=== PATIENT | female | born 1980 | race Caucasian/White ===

== ENCOUNTER 2016-09-06 22:08 | Observation (INO) | payer MEDICAID, OTHER ==
[~2016-09-06] VITALS: Ht 162.6 cm; Wt 61.0 kg
[~2016-09-06 22:08] MED LIST: PRED20 PO; VENTAER INH
[2016-09-06 22:15] VITALS: BP 135/90; PULSE 104; RESP 18; TEMP 98.6; O2SAT 98
[2016-09-07] VITALS (10 sets, daily range): BP systolic 100–136; BP diastolic 49–99; PULSE 53–94; RESP 16–20; TEMP 97.2–98.3; O2SAT 96–100
[2016-09-07] MEDS ORDERED: SODIUM CHLOR 0.9% 1000 ML INJ 1,000 ML IV SCH ×3 (02:01→03:45)
--- NOTE | 2016-09-07 02:07 | PD ---
HPI Chief Complaint: GI Complaint Time Seen by Provider: 01:49 Travel History International Travel<30 days: No Contact w/Intl Traveler<30days: No Traveled to known affect area: No History of Present Illness HPI The patient is a 36-year-old female that about 20 hours ago began vomiting small amounts of bright red blood and noted bright red blood in her stool. Her stool is liquid. She denies any fever. She has a burning pain in her epigastrium and this is an 8/10. She states she had a normal menstrual period 2 weeks ago and cannot be . 2 days ago she drank some alcohol but none since. She had several aspirin and several ibuprofen yesterday. She thinks the ibuprofen may have irritated her stomach. She has never had this problem before. [facility] Past Medical History Medical History: Denies Significant Hx Diminished Hearing: No Tetanus Vaccination: > 5 Years Influenza Vaccination: No ?: Not LMP: 2 WKS AGO : 3 Para: 1 Miscarriage: 1 : 1 Past Surgical History Surgical History: No Previous Surgery Social History Alcohol Use: Yes (DAILY) Tobacco Use: Yes Substance Use: No Allergies-Medications (Allergen,Severity, Reaction): Coded Allergies: No Known Allergies (Verified , 09/07/16) Reported Meds & Prescriptions Reported Meds & Active Scripts Active No Active Prescriptions or Reported Medications Review of Systems Except as stated in HPI: all other systems reviewed are Neg Physical Exam Narrative GENERAL: The patient is alert, oriented 3 in moderate distress with her midline epigastric pain. Her vital signs are normal on repeat. She does not appear anemic. She does appear moderately dehydrated. SKIN: Focused skin assessment warm/dry. HEAD: Atraumatic. Normocephalic. EYES: Pupils equal and round. No scleral icterus. No injection or drainage. ENT: No nasal bleeding or discharge. Mucous membranes pink but dry. NECK: Trachea midline. No JVD. CARDIOVASCULAR: Regular rate and rhythm. No murmur appreciated. RESPIRATORY: No accessory muscle use. Clear to auscultation. Breath sounds equal bilaterally. GASTROINTESTINAL: Abdomen soft, with tenderness to direct palpation in the midline epigastrium, nondistended. Hepatic and splenic margins not palpable. No guarding or rebound is present. MUSCULOSKELETAL: No obvious deformities. No clubbing. No cyanosis. No edema. NEUROLOGICAL: Awake and alert. No obvious cranial nerve deficits. Motor grossly within normal limits. Normal speech. PSYCHIATRIC: The patient is anxious; insight and judgment normal. RECTAL EXAM: No masses or tenderness, stool is light red, watery and strongly guaiac positive. Data Data Last Documented VS Vital Signs Date Time Temp Pulse Resp B/P Pulse Ox O2 Delivery O2 Flow Rate FiO2 09/07/16 02:47 53 128/81 99 Room Air 09/07/16 01:37 18 09/06/16 22:15 98.6 Orders Beta Hcg (Quant/Titer) (09/07/16 02:01) Complete Blood Count With Diff (09/07/16 02:01) Comprehensive Metabolic Panel (09/07/16 02:01) Lipase (09/07/16 02:01) Urinalysis - C+S If Indicated (09/07/16 02:01) Iv Access Insert/Monitor (09/07/16 02:01) Ecg Monitoring (09/07/16 02:01) Oximetry (09/07/16 02:01) Morphine Inj (Morphine Inj) (09/07/16 02:15) Ondansetron Inj (Zofran Inj) (09/07/16 02:15) Pantoprazole Inj (Protonix Inj) (09/07/16 02:15) Sodium Chlor 0.9% 1000 Ml Inj (Ns 1000 M (09/07/16 02:01) Sodium Chloride 0.9% Flush (Ns Flush) (09/07/16 02:15) Famotidine Inj (Pepcid Inj) (09/07/16 02:15) Al-Mag Hy-Si 40-40-4 Mg/Ml Liq (Mag-Al P (09/07/16 02:15) Lidocaine 2% Viscous (Xylocaine 2% Visco (09/07/16 02:15) Drug Screen, Random Urine (09/07/16 02:01) Prothrombin Time / Inr (Pt) (09/07/16 02:08) Act Partial Throm Time (Ptt) (09/07/16 02:08) Ondansetron Inj (Zofran Inj) (09/07/16 02:45) Metoclopramide Inj (Reglan Inj) (09/07/16 03:45) Sodium Chlor 0.9% 1000 Ml Inj (Ns 1000 M (09/07/16 03:45) Labs Laboratory Tests Test 09/07/16 09/07/16 02:00 02:40 White Blood Count 20.9 TH/MM3 Red Blood Count 4.94 MIL/MM3 Hemoglobin 15.7 GM/DL Hematocrit 46.7 % Mean Corpuscular Volume 94.4 FL Mean Corpuscular Hemoglobin 31.7 PG Mean Corpuscular Hemoglobin 33.6 % Concent Red Cell Distribution Width 11.4 % Platelet Count 404 TH/MM3 Mean Platelet Volume 8.4 FL Neutrophils (%) (Auto) 90.5 % Lymphocytes (%) (Auto) 6.9 % Monocytes (%) (Auto) 2.4 % Eosinophils (%) (Auto) 0.1 % Basophils (%) (Auto) 0.1 % Neutrophils # (Auto) 19.0 TH/MM3 Lymphocytes # (Auto) 1.4 TH/MM3 Monocytes # (Auto) 0.5 TH/MM3 Eosinophils # (Auto) 0.0 TH/MM3 Basophils # (Auto) 0.0 TH/MM3 CBC Comment DIFF FINAL Differential Comment Sodium Level 141 MEQ/L Potassium Level 3.5 MEQ/L Chloride Level 102 MEQ/L Carbon Dioxide Level 26.4 MEQ/L Anion Gap 13 MEQ/L Blood Urea Nitrogen 13 MG/DL Creatinine 0.84 MG/DL Estimat Glomerular Filtration 78 ML/MIN Rate Random Glucose 122 MG/DL Calcium Level 9.0 MG/DL Total Bilirubin 0.7 MG/DL Aspartate Amino Transf 13 U/L (AST/SGOT) Alanine Aminotransferase 29 U/L (ALT/SGPT) Alkaline Phosphatase 93 U/L Total Protein 8.4 GM/DL Albumin 4.2 GM/DL Lipase 79 U/L Human Chorionic Gonadotropin, LESS THAN 1 Quant MIU/ML Prothrombin Time 10.4 SEC Prothromb Time International 0.9 RATIO Ratio Activated Partial 23.8 SEC Thromboplast Time MDM Medical Decision Making Medical Screen Exam Complete: Yes Emergency Medical Condition: Yes Medical Record Reviewed: Yes Interpretation(s) The CBC shows a white count of 20,900 with 91% neutrophils. There is apparent hemoconcentration with a hemoglobin at 15.7 and hematocrit of 46.7. The coagulation profile shows an APTT of 23.8 but is otherwise unremarkable. The complete metabolic profile shows a glucose of 122 and total protein 8.4 but is otherwise normal. The lipase is normal. The beta-hCG is less than 1. Differential Diagnosis Ulcer pain, gastritis, gastroenteritis, anemia, electrolyte disorder, dehydration, renal insufficiency, coagulopathyunlikely Narrative Course It is now 0333 and the patient still has abdominal pain and nausea. She has not vomited again. The patient does have what appears to be a gastritis with evidence of dehydration. The dehydration is suggested by the apparent hemoconcentration on the CBC and from the fact that she still cannot make us a urinelikely because she is so dehydrated. The patient will be admitted to the [facility] service, Dr. Garcia. The apparent blood loss is minimal. Diagnosis Primary Impression: Acute hemorrhagic gastritis Additional Impressions: Intractable nausea and vomiting Intractable abdominal pain Moderate dehydration Admitting Information Admitting Physician Requests: Admit Scripts No Active Prescriptions or Reported Meds Koffi Junior MD Sep 07, 2016 02:07
[2016-09-07] MEDS ORDERED: ONDANSETRON HCL 4 MG/2 ML VIAL IVP ONE (02:15)
[2016-09-07] MEDS ORDERED: LIDOCAINE VISCOUS 2% SOLN 15 ML UDC PO ONE (02:15)
[2016-09-07] MEDS ORDERED: FAMOTIDINE 20 MG/2 ML VIAL IV PUSH ONE (02:15)
[2016-09-07] MEDS ORDERED: ALUMINUM/MAGNESIUM/SIMETH 30 ML CUP PO ONE (02:15)
[2016-09-07] MEDS ORDERED: MORPHINE SULFATE 4 MG/ML INJ IV PUSH ONE (02:15)
[2016-09-07] MEDS ORDERED: SODIUM CHLORIDE 0.9% FLUSH 10 ML FLUSH IV FLUSH PRN ×2 (02:15→03:45)
[2016-09-07] MEDS ORDERED: PANTOPRAZOLE SODIUM 40 MG VIAL IVP ONE (02:15)
[2016-09-07] MEDS ORDERED: ONDANSETRON HCL 4 MG/2 ML VIAL IV ONE (02:45)
[2016-09-07 02:49] LABS: BASOPHIL % 0.1 % (0.0-2.0); EOSINOPHIL % 0.1 % (0.0-4.0); HEMATOCRIT 46.7 % (35.0-46.0); LYMPH % 6.9 % (9.0-44.0); LYMPHOCYTE # 1.4 TH/MM3 (1.0-4.8); MEAN CELL VOLUME 94.4 FL (80.0-100.0); MEAN CORPUSCULAR HEMOGLOBIN 31.7 PG (27.0-34.0); MEAN CORPUSCULAR HGB CONC 33.6 % (32.0-36.0); MONO % 2.4 % (0.0-8.0); NEUT % 90.5 % (16.0-70.0); PLATELET COUNT 404 TH/MM3 (150-450); RED BLOOD COUNT 4.94 MIL/MM3 (4.00-5.30); RED CELL DISTRIBUTION WIDTH 11.4 % (11.6-17.2); WHITE BLOOD COUNT 20.9 TH/MM3 (4.0-11.0)
[2016-09-07 02:50] LABS: CHLORIDE 102 MEQ/L (98-107); POTASSIUM 3.5 MEQ/L (3.5-5.1); SODIUM (NA) 141 MEQ/L (136-145)
[2016-09-07 02:54] LABS: ANION GAP 13 MEQ/L (5-15); BICARBONATE 26.4 MEQ/L (21.0-32.0); BLOOD UREA NITROGEN 13 MG/DL (7-18)
[2016-09-07 02:56] LABS: ALT (GPT) 29 U/L (10-53)
[2016-09-07 02:57] LABS: AST (GOT) 13 U/L (15-37); GLOMERULAR FILTRATION RATE 78 ML/MIN (>89)
[2016-09-07 02:58] LABS: HEMO FLAGS DIFF FINAL; TOTAL BILIRUBIN ADULT 0.7 MG/DL (0.2-1.0)
[2016-09-07 02:59] LABS: ALKALINE PHOSPHATASE 93 U/L (45-117)
[2016-09-07 03:02] LABS: BETA HCG QUANT LESS THAN 1 MIU/ML (0-5)
[2016-09-07 03:06] LABS: APTT (PATIENT) 23.8 SEC (24.3-30.1); INTERNATIONAL NORMALIZED RATIO 0.9 RATIO; PROTHROMBIN TIME - PATIENT 10.4 SEC (9.8-11.6)
[2016-09-07] MEDS ORDERED: NALOXONE HCL 0.4 MG/ML AMP IV PRN (03:45)
[2016-09-07] MEDS ORDERED: METOCLOPRAMIDE HCL 10 MG/2 ML VIAL IVS ONE (03:45)
[2016-09-07] MEDS: PANTOPRAZOLE INJ 80 MG in SODIUM CHLORIDE 0.9% INJ 100 ML IV SCH ×2 (04:14→16:03)
[2016-09-07] MEDS ORDERED: HALOPERIDOL LACTATE 5 MG/ML AMP IM PRN (05:00)
[2016-09-07] MEDS ORDERED: DOCUSATE SODIUM 100 MG CAP PO PRN (05:00)
[2016-09-07] MEDS ORDERED: PANTOPRAZOLE INJ 80 MG in SODIUM CHLORIDE 0.9% INJ 35 ML IV ONE (05:00)
[2016-09-07] MEDS ORDERED: LORazepam 1 MG TAB PO PRN (05:00)
[2016-09-07] MEDS ORDERED: LORazepam 2 MG/ML VIAL IV PUSH PRN ×4 (05:00)
[2016-09-07] MEDS ORDERED: FLUMAZENIL 0.5 MG/5 ML VIAL IV PUSH PRN (05:00)
[2016-09-07] MEDS ORDERED: MAGNESIUM HYDROXIDE SUSP 30 ML CUP PO PRN (05:00)
[2016-09-07] MEDS ORDERED: ALUMINUM/MAGNESIUM/SIMETH 30 ML CUP PO PRN (05:00)
[2016-09-07] MEDS ORDERED: CALCIUM CARBONATE 500 MG CHEWABLE TAB CHEW PRN (05:00)
[2016-09-07] MEDS ORDERED: ACETAMINOPHEN 325 MG TAB PO PRN (05:00)
[2016-09-07] MEDS ORDERED: LORazepam 2 MG TAB PO PRN (05:00)
[2016-09-07] MEDS ORDERED: POTASSIUM CHLORIDE 20 MEQ CONTROLLED RELEASE TAB PO ONE (05:00)
[2016-09-07] MEDS: NS + KCL 20 MEQ INJ 1,000 ML IV SCH ×2 (05:54→16:03)
[2016-09-07 06:26] LABS: REVIEW FLAG FINAL
[2016-09-07] MEDS: FOLIC ACID 1 MG TAB PO SCH (09:00)
[2016-09-07] MEDS: SODIUM CHLORIDE 0.9% FLUSH 10 ML FLUSH IV FLUSH SCH ×2 (09:00→20:00)
[2016-09-07] MEDS: THIAMINE HCL 100 MG TAB PO SCH (09:00)
[2016-09-07] MEDS: MULTIVITAMINS/MINERALS THERAPEUTIC TAB PO SCH (09:00)
--- NOTE | 2016-09-07 10:11 | HHI.HP ---
[facility] Service [place] Primary Care Physician No Primary Care Physician Admission Diagnosis hemorrhagic gastritis, intractable vomiting Diagnoses: (1) Abdominal pain (2) Bright red blood per rectum (3) Moderate dehydration Chief Complaint: Blood in stool; nausea/vomiting Travel History International Travel<30 Days: No Contact w/Intl Traveler <30 Da: No Traveled to Known Affected Are: No History of Present Illness The patient is a 36-year-old female who presented to the emergency department with complaint of vomiting that started yesterday. She reports having bright red blood per rectum. Denies bowel movements, but states that it is "all blood" . She reports epigastric pain, 8/10. She states that it feels like "peptic ulcer disease". She has not had prior endoscopy and has never seen a overhead door technician. She has had worsening headaches over the past 3 weeks and has been taking a large amount of ibuprofen over that time. She denies significant alcohol use. She is not sure if there is blood in her emesis, but states that it is dark. She denies vaginal bleeding. States that her last menstrual period was 2 weeks ago. Review of Systems Constitutional: DENIES: Fever, Chills, Night Sweats Eyes: DENIES: Blurred vision, Vision loss Ears, nose, mouth, throat: DENIES: Hearing loss Respiratory: DENIES: Cough, Wheezing, Sputum production, Shortness of breath Cardiovascular: DENIES: Chest pain, Palpitations, Dyspnea on Exertion, Lower Extremity Edema Gastrointestinal: COMPLAINS OF: Abdominal pain, Bloody stools, Nausea, Vomiting , DENIES: Constipation, Diarrhea Genitourinary: DENIES: Urinary frequency, Urinary incontinence, Urgency, Hematuria, Dysuria, Nocturia Musculoskeletal: DENIES: Joint pain, Muscle aches Integumentary: DENIES: Pruritus, Rash Hematologic/lymphatic: DENIES: Bruising Neurologic: COMPLAINS OF: Headache Past Family Social History Past Medical History Denies Past Surgical History None Reported Medications None Allergies: Coded Allergies: No Known Allergies (Verified , 09/07/16) Family History Diabetes Social History Smokes one half pack per day. Reports occasional alcohol use. Admits to smoking marijuana occasionally. Denies IV drug use. Physical Exam Vital Signs Vital Signs Date Time Temp Pulse Resp B/P Pulse Ox O2 Delivery O2 Flow Rate FiO2 09/07/16 09:21 72 16 107/68 98 Room Air 09/07/16 07:03 98.3 87 16 105/49 100 Room Air 09/07/16 03:48 70 100/53 96 Room Air 09/07/16 02:47 53 128/81 99 Room Air 09/07/16 02:20 99 Room Air 09/07/16 01:41 94 109/82 98 Room Air 09/07/16 01:37 18 09/06/16 22:15 98.6 104 18 135/90 98 Physical Exam GENERAL: Well-nourished, well-developed female in no acute distress. HEENT: Normocephalic, atraumatic. Pupils equal, round and reactive. Extraocular movements intact. No scleral icterus. No injection or drainage. Oropharynx is clear. Mucous membranes are moist. CARDIOVASCULAR: Regular rate and rhythm without murmurs, gallops, or rubs. RESPIRATORY: Clear to auscultation. No wheezes, rales, or rhonchi. Breathing is non-labored. GASTROINTESTINAL: Abdomen soft, tender to palpation in the midepigastric region without rebound or guarding, nondistended. Positive bowel sounds. EXTREMITIES: No lower extremity edema. No calf tenderness. PSYCH: Alert and oriented x 3. Laboratory Laboratory Tests Test 09/07/16 09/07/16 09/07/16 09/07/16 02:00 02:40 04:23 06:17 White Blood Count 20.9 Red Blood Count 4.94 Hemoglobin 15.7 12.1 Hematocrit 46.7 37.0 Mean Corpuscular Volume 94.4 Mean Corpuscular Hemoglobin 31.7 Mean Corpuscular Hemoglobin 33.6 Concent Red Cell Distribution Width 11.4 Platelet Count 404 Mean Platelet Volume 8.4 Neutrophils (%) (Auto) 90.5 Lymphocytes (%) (Auto) 6.9 Monocytes (%) (Auto) 2.4 Eosinophils (%) (Auto) 0.1 Basophils (%) (Auto) 0.1 Neutrophils # (Auto) 19.0 Lymphocytes # (Auto) 1.4 Monocytes # (Auto) 0.5 Eosinophils # (Auto) 0.0 Basophils # (Auto) 0.0 CBC Comment DIFF FINAL Differential Comment Sodium Level 141 Potassium Level 3.5 Chloride Level 102 Carbon Dioxide Level 26.4 Anion Gap 13 Blood Urea Nitrogen 13 Creatinine 0.84 Estimat Glomerular Filtration 78 Rate Random Glucose 122 Calcium Level 9.0 Total Bilirubin 0.7 Aspartate Amino Transf 13 (AST/SGOT) Alanine Aminotransferase 29 (ALT/SGPT) Alkaline Phosphatase 93 Total Protein 8.4 Albumin 4.2 Lipase 79 Human Chorionic Gonadotropin, LESS THAN 1 Quant Prothrombin Time 10.4 Prothromb Time International 0.9 Ratio Activated Partial 23.8 Thromboplast Time Blood Type O POSITIVE Antibody Screen NEGATIVE Blood Bank Comment Result Diagram: 09/07/16 0617 09/07/16 0200 Assessment and Plan Assessment and Plan 1. GI bleed: Patient is having bright red blood per rectum, and possibly hematemesis. Hemoglobin has dropped 3 points overnight, but much of this is likely dilutional effect as patient was dehydrated upon presentation. Monitor H& H. Consult GI. Nothing by mouth. 2. Nausea/vomiting: Improving. Patient denies sick contacts. States that she has not eaten anything out of the ordinary recently and no one else who ate the same meal she did has had symptoms. 3. Tobacco abuse: Counseled to quit smoking. Rhys Galvez MD Sep 07, 2016 10:11
[2016-09-07 10:14] LABS: BLOOD, URINE NEG (NEG); GLUCOSE,URINE NEG (NEG); KETONE, URINE 40 mg/dL (NEG); NITRITE,URINE NEG (NEG)
[2016-09-07 10:23] LABS: HEMATOCRIT 38.3 % (35.0-46.0); REVIEW FLAG FINAL
[2016-09-07 10:24] LABS: METHOD OF COLLECTION CLEAN CATCH; URINE COLOR YELLOW (YELLW/STRAW)
[2016-09-07 10:25] LABS: BACTERIA, URINE FEW /hpf; MUCUS URINE FEW /lpf (OCC); RBC, URINE 0-3 /hpf (0-3); WBC, URINE 0-2 /hpf (0-5)
[2016-09-07 10:26] LABS: COMMENT (UR) CULT NOT INDICATED; CULTURE IF INDICATED CULT NOT INDICATED
[2016-09-07 10:40] LABS: BARBITURATES, URINE NEG (NEG); COCAINE, URINE NEG (NEG)
[2016-09-07 10:41] LABS: AMPHETAMINE, URINE NEG (NEG)
[2016-09-07 14:13] LABS: HEMATOCRIT 37.8 % (35.0-46.0); REVIEW FLAG FINAL
--- NOTE | 2016-09-07 16:37 | PD.CONS ---
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 Her emesis varied from clear to bilious with some coffee ground appearance and dark brown color at times. She repeatedly had sensation to defecate but only bright red blood would come out. SHe also has BRBPR when trying to urinate. She has not passed stool in 2-3 days, only blood. She vomited once today and it was clear, no blood. SHe had 1 episode today of blood from rectum and said it was a clot. She admits to recent frequent NSAID use for headaches and taking ibuprofen on empty stomach. She has lost 10 lbs in the last month but she attributes to grief from recent of mother. Never had colonoscopy or endoscopy. Denies heavy alcohol use. Regarding pos result for urine opiate she says she took a pill a friend gave her thinking it was ibuprofen and it must not have been. ( Spring Scott) PFSH Past Medical History Denies Past Surgical History None (Spring Scott) Coded Allergies: No Known Allergies (Verified , 09/07/16) Family History Diabetes mother had throat mass Social History Smokes one half pack per day. Reports occasional alcohol use. Admits to smoking marijuana occasionally. Denies IV drug use. (Spring Scott) Review of Systems Constitutional: DENIES: Fever Eyes: DENIES: Blurred vision Ears, nose, mouth, throat: DENIES: Hearing loss Respiratory: DENIES: Cough Cardiovascular: DENIES: Palpitations Gastrointestinal: COMPLAINS OF: Abdominal pain, Bloody stools, Nausea, Vomiting , DENIES: Black stools, Heartburn Genitourinary: DENIES: Urinary incontinence Musculoskeletal: DENIES: Joint pain Integumentary: DENIES: Abnormal pigmentation Hematologic/lymphatic: DENIES: Bruising Neurologic: DENIES: Abnormal gait (Spring Scott) GI Exam Vitals I&O Vital Signs Date Time Temp Pulse Resp B/P Pulse Ox O2 Delivery O2 Flow Rate FiO2 09/07/16 13:00 97.5 63 16 117/81 97 09/07/16 11:36 68 16 100/64 100 Room Air 09/07/16 09:21 72 16 107/68 98 Room Air 09/07/16 07:03 98.3 87 16 105/49 100 Room Air 09/07/16 03:48 70 100/53 96 Room Air 09/07/16 02:47 53 128/81 99 Room Air 09/07/16 02:20 99 Room Air 09/07/16 01:41 94 109/82 98 Room Air 09/07/16 01:37 18 09/06/16 22:15 98.6 104 18 135/90 98 I/O 09/06/16 09/06/16 09/06/16 09/07/16 09/07/16 09/07/16 06:59 14:59 22:59 06:59 14:59 22:59 Intake Total 2035 ml Balance 2035 ml Intake IV Total 2035 ml Laboratory Test 09/07/16 09/07/16 09/07/16 09/07/16 02:00 02:40 04:23 06:17 White Blood Count 20.9 TH/MM3 Red Blood Count 4.94 MIL/MM3 Hemoglobin 15.7 GM/DL 12.1 GM/DL Hematocrit 46.7 % 37.0 % Mean Corpuscular Volume 94.4 FL Mean Corpuscular Hemoglobin 31.7 PG Mean Corpuscular Hemoglobin 33.6 % Concent Red Cell Distribution Width 11.4 % Platelet Count 404 TH/MM3 Mean Platelet Volume 8.4 FL Neutrophils (%) (Auto) 90.5 % Lymphocytes (%) (Auto) 6.9 % Monocytes (%) (Auto) 2.4 % Eosinophils (%) (Auto) 0.1 % Basophils (%) (Auto) 0.1 % Neutrophils # (Auto) 19.0 TH/MM3 Lymphocytes # (Auto) 1.4 TH/MM3 Monocytes # (Auto) 0.5 TH/MM3 Eosinophils # (Auto) 0.0 TH/MM3 Basophils # (Auto) 0.0 TH/MM3 CBC Comment DIFF FINAL Differential Comment Sodium Level 141 MEQ/L Potassium Level 3.5 MEQ/L Chloride Level 102 MEQ/L Carbon Dioxide Level 26.4 MEQ/L Anion Gap 13 MEQ/L Blood Urea Nitrogen 13 MG/DL Creatinine 0.84 MG/DL Estimat Glomerular Filtration 78 ML/MIN Rate Random Glucose 122 MG/DL Calcium Level 9.0 MG/DL Total Bilirubin 0.7 MG/DL Aspartate Amino Transf 13 U/L (AST/SGOT) Alanine Aminotransferase 29 U/L (ALT/SGPT) Alkaline Phosphatase 93 U/L Total Protein 8.4 GM/DL Albumin 4.2 GM/DL Lipase 79 U/L Human Chorionic Gonadotropin, LESS THAN 1 Quant MIU/ML Prothrombin Time 10.4 SEC Prothromb Time International 0.9 RATIO Ratio Activated Partial 23.8 SEC Thromboplast Time Blood Type O POSITIVE Antibody Screen NEGATIVE Blood Bank Comment Test 09/07/16 09/07/16 09/07/16 10:00 10:14 14:03 Urine Collection Type CLEAN CATCH Urine Color YELLOW Urine Turbidity CLEAR Urine pH 6.0 Urine Specific Amorita 1.025 Urine Protein 30 mg/dL Urine Glucose (UA) NEG mg/dL Urine Ketones 40 mg/dL Urine Occult Blood NEG Urine Nitrite NEG Urine Bilirubin NEG Urine Leukocyte Esterase NEG Urine RBC 0-3 /hpf Urine WBC 0-2 /hpf Urine Squamous Epithelial 6-8 /hpf Cells Urine Bacteria FEW /hpf Urine Mucus FEW /lpf Microscopic Urinalysis Comment CULT NOT INDICATED Urine Collection Time 10:00 Urine Opiates Screen POS Urine Barbiturates Screen NEG Urine Amphetamines Screen NEG Urine Benzodiazepines Screen NEG Urine Cocaine Screen NEG Urine Cannabinoids Screen POS Hemoglobin 12.8 GM/DL 12.7 GM/DL Hematocrit 38.3 % 37.8 % Physical Examination HEENT: EOMI; normocephalic; atraumatic; no jaundice. NECK: Neck is supple CHEST: Chest is clear to auscultation and percussion. CARDIAC: Regular rate and rhythm with no murmur gallop or rubs. ABDOMEN: Soft, nondistended, nontender; no hepatosplenomegaly; bowel sounds are present in all four quadrants. EXTREMITIES: No clubbing, cyanosis, or edema. SKIN: Normal; no rash; no jaundice. PCI SECURITY CONSULTANT: No focal deficits; alert and oriented times three. (Spring Scott) Assessment and Plan Plan ASSESSMENT: - profuse rectal bleeding, coffee ground emesis. Denies heavy ETOH consumption. Frequent use NSAIDs. - epigastric pain, could be ulcer - anemia. Hgb 12.7 down from 15.7 09/07 but stable throughout the day today. 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 egd /colonoscopy planned for tomorrow. Dr. Foreman to follow. Thank you (Isaac Reno MD) Spring Scott Sep 07, 2016 16:37 Isaac Reno MD Sep 07, 2016 18:05
[2016-09-07] MEDS ORDERED: PEG (High)/E-LYTE SOLN 4000 ML BTL PO ONE (17:30)
[2016-09-07 18:20] LABS: HEMATOCRIT 36.5 % (35.0-46.0); REVIEW FLAG FINAL
[2016-09-07] MEDS: ONDANSETRON HCL 4 MG/2 ML VIAL IVP PRN (22:05)
[2016-09-07] MEDS ORDERED: MAGNESIUM CITRATE SOLN 300 ML BTL PO PRN (23:00)
[2016-09-08] VITALS: BP 105/75; PULSE 68; RESP 18; TEMP 98.3; O2SAT 97
[2016-09-08] MEDS: NS + KCL 20 MEQ INJ 1,000 ML IV SCH ×2 (01:06→10:33)
[2016-09-08] MEDS: PANTOPRAZOLE INJ 80 MG in SODIUM CHLORIDE 0.9% INJ 100 ML IV SCH ×2 (01:07→10:36)
[2016-09-08 05:41] LABS: AUTOMATED NEUTROPHIL # 7.2 TH/MM3 (1.8-7.7); BASOPHIL % 0.4 % (0.0-2.0); EOSINOPHIL # 0.1 TH/MM3 (0-0.4); EOSINOPHIL % 0.9 % (0.0-4.0); HEMATOCRIT 35.7 % (35.0-46.0); HEMO FLAGS DIFF FINAL; LYMPH % 30.4 % (9.0-44.0); LYMPHOCYTE # 3.5 TH/MM3 (1.0-4.8); MEAN CELL VOLUME 95.7 FL (80.0-100.0); MEAN CORPUSCULAR HGB CONC 33.4 % (32.0-36.0); MONO % 6.3 % (0.0-8.0); PLATELET COUNT 274 TH/MM3 (150-450); RED BLOOD COUNT 3.73 MIL/MM3 (4.00-5.30); RED CELL DISTRIBUTION WIDTH 11.5 % (11.6-17.2); WHITE BLOOD COUNT 11.5 TH/MM3 (4.0-11.0)
[2016-09-08 06:10] LABS: BICARBONATE 21.6 MEQ/L (21.0-32.0)
[2016-09-08 08:00] VITALS: BP 137/81; PULSE 64; RESP 20; TEMP 97.5; O2SAT 96
--- NOTE | 2016-09-08 08:28 | HHI.PR ---
Subjective Remarks Follow-up GI bleed. Patient states that she thinks the bleeding has stopped. She states that she feels a little better today. Scheduled for endoscopy today. Has had nausea and vomiting. Objective Vitals Vital Signs Date Time Temp Pulse Resp B/P Pulse Ox O2 Delivery O2 Flow Rate FiO2 09/08/16 00:00 98.3 68 18 105/75 97 09/07/16 20:00 55 09/07/16 20:00 97.7 56 20 136/99 100 09/07/16 16:00 97.2 68 17 109/65 98 09/07/16 13:00 97.5 63 16 117/81 97 09/07/16 11:36 68 16 100/64 100 Room Air 09/07/16 09:21 72 16 107/68 98 Room Air I/O 09/07/16 09/07/16 09/07/16 09/08/16 09/08/16 09/08/16 07:00 15:00 23:00 07:00 15:00 23:00 Intake Total 2035 ml 2341 ml 823 ml Balance 2035 ml 2341 ml 823 ml Intake Oral 480 ml 0 ml IV Total 2035 ml 1861 ml 823 ml # Voids 3 2 # Bowel Movements 3 2 Result Diagram: 09/08/16 0450 09/08/16 0450 Objective Remarks General: No acute distress. Heart: Regular rate and rhythm. No murmur. Lungs: Clear to auscultation bilaterally. No wheezes, rales, or rhonchi. Breathing is nonlabored. Abdomen: Soft, mild tenderness to palpation diffusely, nondistended. Extremities: No lower extremity edema. Psych: Alert and oriented. Urinary Catheter: No Vascular Central Line Catheter: No A/P Problem List: (1) Abdominal pain ICD Code: R10.9 Status: Acute (2) Bright red blood per rectum ICD Code: K62.5 Status: Acute (3) Moderate dehydration ICD Code: E86.0 Status: Acute Assessment and Plan 1. GI bleed: Appreciate gastroenterology recommendations. Scheduled for endoscopy today. H&H stable. 2. Nausea/vomiting: Improving. Patient denies sick contacts. States that she has not eaten anything out of the ordinary recently and no one else who ate the same meal she did has had symptoms. 3. Tobacco abuse: Counseled to quit smoking. 4. DVT prophylaxis: BON Joseph. Avoid chemical prophylaxis secondary to GI bleed. Rhys Galvez MD Sep 08, 2016 08:28
[2016-09-08] MEDS ORDERED: PNEUMOCOCCAL POLYVALENT INJ 25 MCG/0.5 ML SYR IM ONE (10:00)
[2016-09-08] MEDS ORDERED: INFLUENZA VIRUS VACCINE (QUADRIVALENT) 0.5 ML SYR IM ONE (10:00)
[2016-09-08] MEDS: THIAMINE HCL 100 MG TAB PO SCH (10:33)
[2016-09-08] MEDS: MULTIVITAMINS/MINERALS THERAPEUTIC TAB PO SCH (10:33)
[2016-09-08] MEDS: SODIUM CHLORIDE 0.9% FLUSH 10 ML FLUSH IV FLUSH SCH ×2 (10:33→21:00)
[2016-09-08] MEDS: FOLIC ACID 1 MG TAB PO SCH (10:33)
[2016-09-08 11:47] VITALS: BP 126/88; PULSE 73; RESP 16; TEMP 98.9; O2SAT 100
[2016-09-08 12:00] VITALS: BP 126/88; PULSE 73; RESP 20; TEMP 96.9; O2SAT 100
[2016-09-08] MEDS ORDERED: PROPOFOL 200 MG/20 ML AMP IV ONE (12:20)
--- NOTE | 2016-09-08 12:51 | PD.PROCEDR ---
GI Procedure REFERRING PHYSICIAN MOE PROCEDURE PERFORMED EGD followed by colonoscopy with biopsy INDICATION FOR PROCEDURE GI bleeding PROCEDURE: The procedure, risks and benefits were discussed with Ms. Neff and informed consent was obtained. Anesthesia sedated her with Diprivan. She was placed in the left lateral decubitus position. EGD: The Pentax videoscope was introduced through the oropharynx and advanced to the second portion of the duodenum under direct visualization. Retroflexion was performed in the stomach. FINDINGS: The esophagus this was normal The stomach this was normal The duodenum this was normal Colonoscopy: The Pentax videoscope was introduced through the rectum and advanced to cecum where the ileocecal valve and appendiceal orifice were identified. Retroflexion was performed in the rectum. Colonic prep was fair FINDINGS: Colonic withdrawal time greater than 6 minutes as the scope was slowly withdrawn colonic mucosa was carefully inspected the patient was noted to have erythema edema and friability in the rectal region about 20 cm from the anal verge otherwise the rest of the colon mucosa was unremarkable and within normal limits biopsies were taken from the rectum for further evaluation I was not able to do a retroflexion due to friability ESTIMATED BLOOD LOSS: None SPECIMENS REMOVED: Colon biopsies COMPLICATIONS: None IMPRESSION: Normal EGD Proctitis PLAN: Await biopsy Recommend Canasa suppositories Advance diet Follow-up with GI in 2-4 weeks post discharge Ghassan Foreman MD Sep 08, 2016 12:51
[2016-09-08] MEDS: ONDANSETRON HCL 4 MG/2 ML VIAL IVP PRN (14:08)
[2016-09-08] MEDS ORDERED: PROMETHAZINE HCL 25 MG TAB PO PRN (15:00)
[2016-09-08] MEDS ORDERED: PILL SPLITTER OTHER PRN (15:15)
[2016-09-08 16:00] VITALS: BP 117/68; PULSE 70; RESP 20; TEMP 97.9; O2SAT 99
[2016-09-08] MEDS ORDERED: METOCLOPRAMIDE HCL 10 MG/2 ML VIAL IV PUSH ONE (16:15)
[2016-09-08 20:00] VITALS: BP 121/80; PULSE 65; RESP 18; TEMP 98.8; O2SAT 99
[2016-09-08] MEDS ORDERED: MESALAMINE 1000 MG SUPP RECTAL SCH (21:00)
[2016-09-09] VITALS: BP 100/68; PULSE 62; RESP 16; TEMP 98.5; O2SAT 98
[2016-09-09 04:00] VITALS: BP 128/88; PULSE 68; RESP 16; TEMP 98.6; O2SAT 97
[2016-09-09] MEDS: PANTOPRAZOLE INJ 80 MG in SODIUM CHLORIDE 0.9% INJ 100 ML IV SCH (05:58)
[2016-09-09 06:44] LABS: HEMATOCRIT 37.7 % (35.0-46.0); MEAN CELL VOLUME 95.2 FL (80.0-100.0); MEAN CORPUSCULAR HEMOGLOBIN 31.3 PG (27.0-34.0); MEAN CORPUSCULAR HGB CONC 32.8 % (32.0-36.0); PLATELET COUNT 284 TH/MM3 (150-450); RED BLOOD COUNT 3.96 MIL/MM3 (4.00-5.30); REVIEW FLAG FINAL; WHITE BLOOD COUNT 11.3 TH/MM3 (4.0-11.0)
[2016-09-09 08:00] VITALS: BP 125/88; PULSE 68; RESP 18; TEMP 97.9; O2SAT 97
[2016-09-09] MEDS ORDERED: CANA10002 RECTAL (09:04)
--- NOTE | 2016-09-09 09:05 | HHI.DCPOC ---
Discharge Care Plan Diagnosis: (1) Moderate dehydration (2) Intractable abdominal pain (3) Intractable nausea and vomiting (4) Bright red blood per rectum (5) Abdominal pain Goals to Promote Your Health * To prevent worsening of your condition and complications * To maintain your health at the optimal level Directions to Meet Your Goals Take your medications as prescribed Follow your dietary instruction Follow activity as directed Keep your appointments as scheduled Take your immunizations and boosters as scheduled If your symptoms worsen call your PCP, if no PCP go to Urgent Care Center or Emergency Room Smoking is Dangerous to Your Health. Avoid second hand smoke Call the 24-hour hour crisis hotline for domestic abuse at Rhys Galvez MD Sep 09, 2016 09:05
--- NOTE | 2016-09-09 09:09 | HHI.PR ---
Subjective Remarks Follow up proctitis, GI bleed. No further bleeding. Nausea/vomiting resolved. Patient had a normal bowel movement. She wants to go home. Objective Vitals Vital Signs Date Time Temp Pulse Resp B/P Pulse Ox O2 Delivery O2 Flow Rate FiO2 09/09/16 04:00 98.6 68 16 128/88 97 09/09/16 00:00 98.5 62 16 100/68 98 09/08/16 20:00 98.8 65 18 121/80 99 09/08/16 16:00 97.9 70 20 117/68 99 09/08/16 13:00 56 14 144/97 100 09/08/16 12:42 97.7 68 14 119/53 99 Room Air 09/08/16 12:00 96.9 73 20 126/88 100 09/08/16 11:47 98.9 73 16 126/88 100 I/O 09/08/16 09/08/16 09/08/16 09/09/16 09/09/16 09/09/16 07:00 15:00 23:00 07:00 15:00 23:00 Intake Total 823 ml 900 ml 420 ml 480 ml Balance 823 ml 900 ml 420 ml 480 ml Intake Oral 0 ml 800 ml 420 ml 480 ml IV Total 823 ml Other 100 ml # Voids 2 4 1 2 # Bowel Movements 2 2 1 0 Result Diagram: 09/09/16 0625 09/08/16 0450 Objective Remarks Patient seen in the presence of the nurse. General: No acute distress. Heart: Regular rate and rhythm. No murmur. Lungs: Clear to auscultation bilaterally. No wheezes, rales, or rhonchi. Breathing is nonlabored. Abdomen: Soft, mild tenderness to palpation diffusely, nondistended. Extremities: No lower extremity edema. Psych: Alert and oriented. Urinary Catheter: No Vascular Central Line Catheter: No A/P Problem List: (1) Abdominal pain ICD Code: R10.9 Status: Acute (2) Bright red blood per rectum ICD Code: K62.5 Status: Acute (3) Moderate dehydration ICD Code: E86.0 Status: Acute Assessment and Plan 1. GI bleed: Appreciate gastroenterology recommendations. H&H remain stable. Status post EGD, colonoscopy. Patient noted to have proctitis. Started on mesalamine by GI. Symptoms have improved. No further bleeding. 2. Nausea/vomiting: Resolved. 3. Tobacco abuse: Counseled to quit smoking. 4. DVT prophylaxis: BON Joseph. Avoid chemical prophylaxis secondary to GI bleed. Discharge Planning Discharge home in stable condition. Heart healthy diet. Activity as tolerated. Follow-up with GI in 2 weeks. Patient counseled regarding inappropriate use of NSAIDs. Rhys Galvez MD Sep 09, 2016 09:08
[2016-09-09] MEDS: FOLIC ACID 1 MG TAB PO SCH (09:19)
[2016-09-09] MEDS: MULTIVITAMINS/MINERALS THERAPEUTIC TAB PO SCH (09:19)
[2016-09-09] MEDS: THIAMINE HCL 100 MG TAB PO SCH (09:19)
== END 2016-09-09 10:30 | disposition home or self-care (01) ==
LOC: PHED 22:08 → PHEDA 09-07 03:41 → INTOOBSV 09-07 03:41 → PHEDH 09-07 07:40 → PH3B 09-07 12:42
PROVIDERS: ADMIT Family Medicine; ATTEND Family Medicine
DX: K29.01 Acute gastritis with bleeding (principal); E86.0 Dehydration; F17.210 Nicotine dependence, cigarettes, uncomplicated; R51 Headache; F12.90 Cannabis use, unspecified, uncomplicated; D64.9 Anemia, unspecified; R19.7 Diarrhea, unspecified; K92.1 Melena; K62.89 Other specified diseases of anus and rectum
CPT/HCPCS: 00740; 00810; 43235; 45380; 80048; 80053; 80307; 81001; 83690; 84702; 85014; 85018; 85025; 85027; 85610; 85730; 86850; 86900; 86901; 88305; 96361; 96374; 96375; 96376; 99285; C9113; G0378; J2270; J2405; J2765; J3480; J7030; Q0169